=== PATIENT | female | born 1960 ===

== ENCOUNTER → 2022-02-17 | Day surgery (SDC) | payer OTHER ==
[2022-02-17 10:28] VITALS: RESP 16
[2022-02-17 12:14] VITALS: BP 160/77; PULSE 76; TEMP 98.1
--- NOTE | 2022-02-23 10:19 | MM ---
Reason for Exam: Screening (asymptomatic). Risk Values: Karina 5 year model risk: 1.0%. NCI Lifetime model risk: 4.7%. Tissue Density: Left: The breast tissue is heterogeneously dense. This may lower the sensitivity of mammography. Analyzed By CAD. Pathology Description: Marker Left Behind. Specimen Radiograph. Approach: CC FB Needle Type: Eviva Cores: 6 Skin Nicks: 1 Gauge: 9 The procedure of stereotactic guided core biopsy was explained to the patient. Benefits, alternatives, and risks were discussed. An informed consent was then obtained. The shortness pathway for biopsy was chosen. Shortness pathway was inferior approach. The procedure was performed by radiology. Targeting was provided by radiology. Vacuum-assisted biopsy device was utilized to obtain 6 core samples. The patient tolerated the procedure well without any immediate complication. The patient was kept in the radiology department for short stay after the procedure and then discharged home in stable condition. Specimen: Targeted calcifications are identified in specimen mammogram. Post procedure mammogram: Post biopsy mammogram shows the clip to appear in satisfactory position relative to the targeted area of concern on the preprocedure images. Impression: 1. Successful stereotactic core biopsy left breast calcifications. Pathology Results: Result: Benign, Fibroadenomatoid hyperplasia. LEFT BREAST, STEREOTACTIC NEEDLE CORE BIOPSY: Fibroadenomatoid hyperplasia with calcifications and background fibrocystic changes. Overall Assessment: Benign Assessment: MG follow up LT no charge - Left: Benign, BI-RAD 2. Management: Diagnostic Mammogram of the left breast in 6 months. Electronically signed and approved by: Federico Vargas D.O. Radiologis
== END ==
LOC: RADMAMWWP 09:50 → EDBD 10:30
PROVIDERS: ATTEND Family Medicine
DX: R92.8 Other abnormal and inconclusive findings on diagnostic imaging of breast (principal); N60.12 Diffuse cystic mastopathy of left breast; I25.10 Atherosclerotic heart disease of native coronary artery without angina pectoris
CPT/HCPCS: 88305; 19081; A4648; J2001